=== PATIENT | male | born 1995 | race African-American/Black ===

== ENCOUNTER 2018-03-07 11:10 | Emergency (ER) | payer BC ==
[2018-03-07 11:21] VITALS: BP 157/99; PULSE 87; TEMP 98; BMI 24.6
[2018-03-07] MEDS ORDERED: NAPROXEN 500 MG TABLET (FP) PO ONE (11:28)
[2018-03-07] MEDS ORDERED: NAPROXEN 500 MG TABLET (FP) ONE (11:29)
--- NOTE | 2018-03-07 12:12 | PDOC ---
History of Present Illness - General Chief Complaint: Injury Stated Complaint: BOTH WRIST HURT Time Seen by Provider: 03/07/18 11:12 History Source: Patient Exam Limitations: No Limitations - History of Present Illness Initial Comments: 03/07/18 12:06 22 yo RHD M c/ no pmh p/w bilateral wrist pains. Pt was at the gym yesterday. Noted another gym member was squatting ~ 185 lbs. The gym member was about to fall when he caught the weights with his hands. He gripped the weights and held onto it as it fell to the ground. He felt a jerking motion to both his wrists, and felt discomfort. Was able to finish his workout after the incident. Noted this morning of feeling discomfort with movements, but denies numbness, weakness, tingling. Past History - Past Medical History Allergies/Adverse Reactions: Allergies Allergy/AdvReac Type Severity Reaction Status Date / Time No Known Allergies Allergy Unverified 03/07/18 11:12 Home Medications: Ambulatory Orders NK [No Known Home Medication] 03/07/18 COPD: No Other medical history: DENIES - Immunization History Immunization Up to Date: No - Suicide/Smoking/Psychosocial Hx Smoking History: Never smoked Have you smoked in the past 12 months: No Information on smoking cessation initiated: No Hx Alcohol Use: Yes Drug/Substance Use Hx: No Substance Use Type: Alcohol Review of Systems - Review of Systems Able to Perform ROS?: Yes Comments:: 03/07/18 12:16 ROS: GENERAL/CONSTITUTIONAL: No fever or chills. No weakness. HEAD, EYES, EARS, NOSE AND THROAT: No change in vision. No ear pain or discharge. No sore throat. CARDIOVASCULAR: No chest pain or shortness of breath. RESPIRATORY: No cough, wheezing, or hemoptysis. GASTROINTESTINAL: No nausea, vomiting, diarrhea or constipation. GENITOURINARY: No dysuria, frequency, or change in urination. MUSCULOSKELETAL: + bilateral wrist pain . No neck or back pain. SKIN: No rash NEUROLOGIC: No headache, vertigo, loss of consciousness, or change in strength/ sensation. ENDOCRINE: No increased thirst. No abnormal weight change. HEMATOLOGIC/LYMPHATIC: No anemia, easy bleeding, or history of blood clots. ALLERGIC/IMMUNOLOGIC: No hives or skin allergy. *Physical Exam - Vital Signs Last Vital Signs Temp Pulse Resp BP Pulse Ox 98 F 87 16 157/99 100 03/07/18 11:11 03/07/18 11:11 03/07/18 11:11 03/07/18 11:11 03/07/18 11:11 - Physical Exam Comments: 03/07/18 12:17 GENERAL: Awake, alert, and fully oriented, in no acute distress. HEAD: No signs of trauma EYES: PERRLA, EOMI, sclera anicteric, conjunctiva clear ENT: Auricles normal inspection, hearing grossly normal, nares patent NECK: Normal ROM, supple EXTREMITIES: Normal range of motion, no edema. Mild TTP bilateral distal ulnar. Median/Radian/Ulnar nerve distribution intact throughout. 2+ radial pulse bilaterally. FROM. NEUROLOGICAL: Cranial nerves II through XII grossly intact.~ Normal speech ED Treatment Course - RADIOLOGY Radiology Studies Ordered: Category Date Time Status WRIST- RIGHT [RAD] Stat Radiology 03/07/18 11:28 Taken WRIST-LEFT [RAD] Stat Radiology 03/07/18 11:28 Taken - Medications Given in the ED: ED Medications Discontinued Medications Generic Name Dose Route Start Last Admin Trade Name Freq PRN Reason Stop Dose Admin Naproxen 500 mg 03/07/18 11:28 03/07/18 11:30 Naprosyn - PO 03/07/18 11:29 500 mg ONCE ONE Administration Medical Decision Making - Medical Decision Making 03/07/18 12:23 Vital Signs Temp Pulse Resp BP Pulse Ox 98 F 87 16 157/99 100 03/07/18 11:11 03/07/18 11:11 03/07/18 11:11 03/07/18 11:11 03/07/18 11:11 Wrist xrays demonstrate no fractures. Will treat as a sprain. However, instructed pt that if pain persists for more than a week, he will need follow up with orthopedics as xrays may miss small fractures and may need an evaluation with potential MRI to r/o occult fracture or tears. Pt verbalizes understanding and agrees with plan. Two removable splints applied to the patient. *DC/Admit/Observation/Transfer Diagnosis at time of Disposition: Wrist sprain Qualifiers: Encounter type: initial encounter Laterality: unspecified laterality Qualified Code(s): S63.509A - Unspecified sprain of unspecified wrist, initial encounter - Discharge Dispostion Disposition: HOME Condition at time of disposition: Stable Admit: No - Referrals Referrals: Rey Dash MD [Staff Physician] - - Patient Instructions Printed Discharge Instructions: DI for Wrist Sprain Additional Instructions: Take 600 mg ibuprofen every 6 hours as needed for pain. Elevate the hands as much as you can. Wear the wrist splints. Ice about 10 minutes a day once every other hour as needed. If your pain persists for more than 1 week, please make an appointment with the orthopedist. Call to schedule an appointment. - Post Discharge Activity
== END 2018-03-07 12:40 | disposition home or self-care (01) ==
LOC: FER 11:10
PROC: 2W3DX1Z Immobilization of Left Lower Arm using Splint (ICD-10-PCS; principal; 2018-03-07)
DX: S63.502A Unspecified sprain of left wrist, initial encounter (principal); S63.501A Unspecified sprain of right wrist, initial encounter; X58.XXXA Exposure to other specified factors, initial encounter; Y93.89 Activity, other specified; Y92.9 Unspecified place or not applicable
CPT/HCPCS: 73110-TC-LR-FY; 73110-TC-RT-FY; 99281-25